=== PATIENT | female | born 1975 | race Caucasian/White ===

== ENCOUNTER 2016-06-21 10:14 | Emergency (ER) | payer MEDICAID ==
[~2016-06-21] VITALS: Ht 165.1 cm; Wt 119.9 kg
[~2016-06-21 10:14] MED LIST: CYCL10TA50 PO; IBUP800T PO; MELO7.5T5 PO; OXYC-302; OXYC1TAB7 PO
[2016-06-21] MEDS ORDERED: FAMOTIDINE 20 MG/2 ML IVP ONE (12:30)
[2016-06-21] MEDS ORDERED: SODIUM CHLORIDE 0.9% 1,000ML IVBOLUS ONE (12:30)
[2016-06-21] MEDS ORDERED: MORPHINE SULFATE 4 MG/ML, 1ML IVPush PRN (12:30)
[2016-06-21] MEDS ORDERED: SODIUM CHLORIDE FLUSH 10ML SYR IVF ONE (12:30)
[2016-06-21] MEDS ORDERED: ONDANSETRON 2MG/ML, 2ML IVPush ONE (12:30)
[2016-06-21] MEDS ORDERED: ONDANSETRON 2MG/ML, 2ML ONE (12:36)
[2016-06-21] MEDS ORDERED: MORPHINE SULFATE 4 MG/ML, 1ML ONE (12:36)
[2016-06-21] MEDS ORDERED: FAMOTIDINE 20 MG/2 ML ONE (12:36)
[2016-06-21 13:07] LABS: HEMOGLOBIN 15.6 g/dL (11.7-16.4)
[2016-06-21 13:17] LABS: ASPARTATE AMINO TRANSFERASE 14 U/L (15-37); BLOOD UREA NITROGEN 11 mg/dL (7-18)
[2016-06-21] MEDS ORDERED: OMNIPAQUE 350 MG/ML, 100ML BOTTLE ONE (15:08)
[2016-06-21 15:55] VITALS: BP 120/74
== END 2016-06-21 16:06 | disposition home or self-care (01) ==
LOC: ED 15:26
DX: R10.31 Right lower quadrant pain (principal); R11.2 Nausea with vomiting, unspecified; R19.7 Diarrhea, unspecified; Z90.49 Acquired absence of other specified parts of digestive tract; Z90.710 Acquired absence of both cervix and uterus; Z98.51 Tubal ligation status
CPT/HCPCS: 36415; 74177; 80053; 81001; 83690; 85025; 87086; 96361; 96374; 96375; 99285; J2405; J7030; Q9967; S0028

== ENCOUNTER 2016-09-01 14:06 | Emergency (ER) | payer MEDICAID ==
[~2016-09-01] VITALS: Ht 165.1 cm; Wt 120.0 kg
[2016-09-01] MEDS ORDERED: DIAZEPAM 5 MG/ML, 2ML IVPush ONE (15:00)
[2016-09-01] MEDS ORDERED: MORPHINE SULFATE 4 MG/ML, 1ML IVPush PRN (15:00)
[2016-09-01] MEDS ORDERED: SODIUM CHLORIDE 0.9% 1,000ML IV ONE (15:00)
[2016-09-01] MEDS ORDERED: KETOROLAC 30 MG/1 ML IVPush ONE (15:00)
[2016-09-01] MEDS ORDERED: SODIUM CHLORIDE FLUSH 10ML SYR IVF ONE (15:00)
[2016-09-01] MEDS ORDERED: SODIUM CHLORIDE 0.9% 1,000 ML IV ONE (15:48)
[2016-09-01] MEDS ORDERED: ONDANSETRON 2MG/ML, 2ML IVPush ONE (16:00)
[2016-09-01] MEDS ORDERED: SODIUM CHLORIDE 0.9% 1,000ML IVBOLUS ONE (16:00)
[2016-09-01 16:27] LABS: ASPARTATE AMINO TRANSFERASE 10 U/L (15-37); BLOOD UREA NITROGEN 9 mg/dL (7-18)
[2016-09-01 16:28] LABS: PATH.CAST-FLAG NOT PRESENT; SPERM-FLAG NOT PRESENT; SRC-FLAG NOT PRESENT; XTAL-FLAG NOT PRESENT; YLC-FLAG NOT PRESENT
[2016-09-01] MEDS ORDERED: ONDANSETRON 2MG/ML, 2ML ONE (16:33)
[2016-09-01] MEDS ORDERED: MORPHINE SULFATE 4 MG/ML, 1ML ONE (16:33)
[2016-09-01 17:02] VITALS: BP 132/81
== END 2016-09-01 17:52 | disposition home or self-care (01) ==
LOC: ED 17:30
DX: K52.9 Noninfective gastroenteritis and colitis, unspecified (principal); I10 Essential (primary) hypertension; Z90.49 Acquired absence of other specified parts of digestive tract
CPT/HCPCS: 36415; 72110; 74020; 80053; 81001; 85025; 96361; 96374; 96375; 99285; J2405; J7030

== ENCOUNTER 2016-11-15 11:32 | Emergency (ER) | payer MEDICAID ==
[~2016-11-15] VITALS: Ht 165.1 cm; Wt 121.3 kg
[~2016-11-15 11:32] MED LIST changes: +IBUP-1223 PO; -IBUP800T PO
[2016-11-15] MEDS ORDERED: FAMOTIDINE 20 MG/2 ML IVP ONE (12:30)
[2016-11-15] MEDS ORDERED: MORPHINE SULFATE 4 MG/ML, 1ML IVPush PRN (12:30)
[2016-11-15] MEDS ORDERED: ONDANSETRON 2MG/ML, 2ML IVPush ONE (12:30)
[2016-11-15] MEDS ORDERED: MAALOX/HYOSCYAMINE/LIDOCAINE 45 ML BTL PO ONE (12:30)
[2016-11-15] MEDS ORDERED: SODIUM CHLORIDE 0.9% 1,000ML IVBOLUS ONE (12:30)
[2016-11-15] MEDS ORDERED: SODIUM CHLORIDE FLUSH 10ML SYR IVF ONE (12:30)
[2016-11-15] MEDS ORDERED: ONDANSETRON 2MG/ML, 2ML ONE (12:36)
[2016-11-15] MEDS ORDERED: MORPHINE SULFATE 4 MG/ML, 1ML ONE (12:36)
[2016-11-15] MEDS ORDERED: FAMOTIDINE 20 MG/2 ML ONE (12:36)
[2016-11-15] MEDS ORDERED: MAALOX/HYOSCYAMINE/LIDOCAINE 45 ML BTL ONE (12:37)
[2016-11-15 13:36] LABS: ASPARTATE AMINO TRANSFERASE 12 U/L (15-37); BLOOD UREA NITROGEN 6 mg/dL (7-18)
[2016-11-15 13:38] LABS: HEMATOCRIT 39.2 % (34.6-47.8); HEMOGLOBIN 13.2 g/dL (11.7-16.4); WHITE BLOOD COUNT 7.4 x10^3/uL (3.4-10)
[2016-11-15 16:01] VITALS: BP 111/71
== END 2016-11-15 16:04 | disposition home or self-care (01) ==
LOC: ED 12:35
DX: K52.9 Noninfective gastroenteritis and colitis, unspecified (principal); J20.9 Acute bronchitis, unspecified; I10 Essential (primary) hypertension; Z90.49 Acquired absence of other specified parts of digestive tract; Z90.710 Acquired absence of both cervix and uterus
CPT/HCPCS: 36415; 74022; 76830; 80053; 81003; 83690; 85025; 96361; 96374; 96375; 99285; J2405; J7030; S0028

== ENCOUNTER 2016-12-22 22:07 | Emergency (ER) | payer MEDICAID ==
[~2016-12-22] VITALS: Ht 165.1 cm; Wt 120.0 kg
[2016-12-22 22:08] VITALS: BP 121/86
== END 2016-12-22 23:21 | disposition home or self-care (01) ==
LOC: ED 23:00
DX: S76.011A Strain of muscle, fascia and tendon of right hip, initial encounter (principal); S80.11XA Contusion of right lower leg, initial encounter; G89.11 Acute pain due to trauma; W01.0XXA Fall on same level from slipping, tripping and stumbling without subsequent striking against object, initial encounter; Y93.01 Activity, walking, marching and hiking; Y92.480 Sidewalk as the place of occurrence of the external cause; Y99.8 Other external cause status
CPT/HCPCS: 99284

== ENCOUNTER 2017-02-21 14:35 | Emergency (ER) | payer MEDICAID ==
[~2017-02-21] VITALS: Ht 165.1 cm; Wt 120.9 kg
[2017-02-21 14:44] VITALS: BP 146/83
== END 2017-02-21 15:35 | disposition home or self-care (01) ==
LOC: ED 15:19
DX: B85.0 Pediculosis due to Pediculus humanus capitis (principal); Z59.0 Homelessness; I10 Essential (primary) hypertension; Z90.49 Acquired absence of other specified parts of digestive tract
CPT/HCPCS: 99283

== ENCOUNTER 2017-03-20 09:05 | Emergency (ER) | payer MEDICAID ==
[~2017-03-20] VITALS: Ht 165.1 cm; Wt 117.8 kg
[2017-03-20] MEDS ORDERED: OXYC-307 PO (10:26)
[2017-03-20] MEDS ORDERED: BICILLIN-LA 1,200,000 UNITS/2 ML IM ONE (11:30)
[2017-03-20 11:50] VITALS: BP 119/60
== END 2017-03-20 12:15 | disposition home or self-care (01) ==
LOC: ED 11:24
DX: J02.0 Streptococcal pharyngitis (principal); I10 Essential (primary) hypertension; E66.9 Obesity, unspecified; Z90.49 Acquired absence of other specified parts of digestive tract
CPT/HCPCS: 87880; 96372; 99283; J0561

== ENCOUNTER 2018-04-14 11:01 | Emergency (ER) | payer SELFPAY ==
[~2018-04-14] VITALS: Ht 165.1 cm; Wt 111.6 kg
[~2018-04-14 11:01] MED LIST changes: +OXYC-307 PO
--- NOTE | 2018-04-14 12:25 | NUR ---
NO ANSWER IN LOBBY
--- NOTE | 2018-04-14 12:32 | NUR ---
AMBULATORY TO ROOM AT THIS TIME
[2018-04-14 12:37] LABS: MEAN CORPUSCULAR HEMOGLOBIN 31.7 pg (27.0-34.8); MEAN CORPUSCULAR HGB CONC 33.9 g/dL (32.4-35.8); MEAN CORPUSCULAR VOLUME 93.5 fL (80-100); PLATELET COUNT 262 x10^3/uL (130-400); RED BLOOD COUNT 4.04 x10^6/uL (3.82-5.3); RED CELL DISTRIBUTION WIDTH 14.1 % (9.6-15.2)
[2018-04-14] MEDS ORDERED: CYCL-259 PO (12:40)
[2018-04-14 12:51] LABS: ALBUMIN 3.4 g/dL (3.4-5.0); ANION GAP 6 mmol/L (5-15); CALCIUM 8.3 mg/dL (8.5-10.1); CHLORIDE 108 mmol/L (98-107); CREATININE 0.62 mg/dL (0.55-1.02)
[2018-04-14] MEDS ORDERED: SODIUM CHLORIDE FLUSH 10ML SYR IVF ONE (13:00)
[2018-04-14] MEDS ORDERED: DIPHENHYDRAMINE 50 MG/ML, 1ML IVPush ONE (13:00)
[2018-04-14] MEDS ORDERED: PROCHLORPERAZINE 5 MG/ML, 2ML IVPush ONE (13:00)
[2018-04-14 13:25] LABS: MD YES
[2018-04-14 13:29] LABS: <RBC MORPHOLOGY> NORMAL; BASOS#(MANUAL) 0.13 x10^3/uL (0-0.1); BASOS% (MANUAL) 1 % (0-1); EOS#(MANUAL) 0.13 x10^3/uL (0.0-0.4); EOS% (MANUAL) 1 % (1-7); LYMPH#(MANUAL) 5.29 x10^3/uL (1-3.4); LYMPHS% (MANUAL) 41 % (22-44); MONOS#(MANUAL) 0.26 x10^3/uL (0.3-2.7); MONOS% (MANUAL) 2 % (2-9); REACTIVE LYMPHS # (MANUAL) 0.13 x10^3/uL (0-0); REACTIVE LYMPHS % (MANUAL) 1 % (0-0); SEG#(MANUAL) 6.97 x10^3/uL (1.8-6.8); SEGS% (MANUAL) 54 % (42-75)
[2018-04-14 13:30] LABS: <PLATELET ESTIMATE> ADEQUATE; <PLT MORPHOLOGY> NORMAL PLT MORPH
--- NOTE | 2018-04-14 14:15 | NUR ---
PT UNABLE TO VOID. BLADDER SCAN COMPLETED WITH 440 ML NOTED. STRAIGHT CATH COMPLETED WITH 550 ML CLEAR YELLOW URINE NOTED.
[2018-04-14] MEDS ORDERED: PROCHLORPERAZINE 5 MG/ML, 2ML ONE (14:23)
[2018-04-14] MEDS ORDERED: DIPHENHYDRAMINE 50 MG/ML, 1ML ONE (14:23)
[2018-04-14 14:48] LABS: MICROSCOPIC NOT IND
[2018-04-14 14:55] LABS: CULTURE INDICATED? NO
--- NOTE | 2018-04-14 14:56 | NUR ---
DR LEON, ANESTHESIA AT BEDSIDE. US GUIDED PIV ATTEMPT X [address] BY SANDRA AMATO WITHOUT SUCCESS. [address] LEON TO ATTEMPT
--- NOTE | 2018-04-14 15:04 | NUR ---
DR LEON ABLE TO OBTAIN IV ACCESS VIA ULTRASOUND AND NOTED IN CHART. CONSENT OBTAINED FOR EPIDURAL BLOOD PATCH.
--- NOTE | 2018-04-14 16:07 | NUR ---
PER PT, HER MARES PAIN IS NOW 2/10. PT RPTS THAT DR LEON CANCELED THE BLOOD PATCH. PT AMBULATED BATHROOM UPRIGHT STEADY GAIT. PT RPTS THAT SHE VOIDED W/O DIFFICULTY AND DOES NOT FEEL THAT SHE IS RETAINING URINE. BLADDER IS SOFT TO PALPATION
[2018-04-14 16:08] VITALS: BP 127/75
--- NOTE | 2018-04-14 16:17 | NUR ---
Patient/Caregiver given discharge instructions and they have confirmed that they understand the instructions. Patient ambulatory with steady gait. TAXI VOUCHER PROVIDED
== END 2018-04-14 17:22 | disposition home or self-care (01) ==
LOC: ED 15:15
DX: G43.011 Migraine without aura, intractable, with status migrainosus (principal); Z90.49 Acquired absence of other specified parts of digestive tract; Z90.710 Acquired absence of both cervix and uterus; M54.9 Dorsalgia, unspecified; G89.29 Other chronic pain
CPT/HCPCS: 36415; 80048; 81003; 82040; 85025; 96374; 96375; 99283; J0780; J1200

== ENCOUNTER 2018-04-16 21:57 | Emergency (ER) | payer SELFPAY ==
[~2018-04-16] VITALS: Ht 165.1 cm; Wt 108.1 kg
[~2018-04-16 21:57] MED LIST changes: +CYCL-259 PO
[2018-04-16] MEDS ORDERED: KETOROLAC 30 MG/1 ML ONE (22:23)
[2018-04-16] MEDS ORDERED: KETOROLAC 30 MG/1 ML IM ONE (22:30)
--- NOTE | 2018-04-16 22:58 | NUR ---
PT REPORTS RIGHT SIDED ABD PAIN THAT GOES TO RIGHT FLANK. NO ACUTE DISTRESS NOTED. CALL LIGHT IN PLACE. WILL CONTINUE TO MONITOR.
--- NOTE | 2018-04-16 23:04 | NUR ---
REPORT RECEIVED FROM SANDRA CUADRA. ASSUMED CARE OF PT. AWAITING LABS AT THIS TIME. WILL CONTINUE TO MONITOR.
[2018-04-16 23:07] LABS: CULTURE INDICATED? YES; MICROSCOPIC INDICATED
--- NOTE | 2018-04-16 23:08 | NUR ---
REPORT GIVEN TO SANDRA MERAZ
[2018-04-16] MEDS ORDERED: CEFDINIR 300 MG CAPSULE ONE (23:29)
[2018-04-16] MEDS ORDERED: CEFDINIR 300 MG CAPSULE PO ONE (23:30)
[2018-04-16 23:32] VITALS: BP 118/68
--- NOTE | 2018-04-16 23:32 | NUR ---
PT MEDICATED PER EMAR. 5 RIGHTS ADDRESSED.
--- NOTE | 2018-04-16 23:39 | NUR ---
Patient/Caregiver given discharge instructions and they have confirmed that they understand the instructions. Patient ambulatory with steady gait.
== END 2018-04-16 23:41 | disposition home or self-care (01) ==
LOC: ED 22:52
DX: N30.00 Acute cystitis without hematuria (principal); I10 Essential (primary) hypertension; Z90.49 Acquired absence of other specified parts of digestive tract; Z98.890 Other specified postprocedural states; Z90.710 Acquired absence of both cervix and uterus; Z98.51 Tubal ligation status
CPT/HCPCS: 81001; 87077; 87086; 87186; 96372; 99283; J1885

== ENCOUNTER 2020-08-26 14:47 | Emergency (ER) | payer MEDICAID ==
[~2020-08-26] VITALS: Ht 165.1 cm; Wt 157.0 kg
[~2020-08-26 14:47] MED LIST changes: -CYCL-259 PO; +CYCL10TA2 PO; -OXYC-302; -OXYC-307 PO; +OXYC-380 PO; +OXYC1TAB14
[2020-08-26 15:04] VITALS: BP 147/85
--- NOTE | 2020-08-26 16:29 | NUR ---
PT BIB SELF VIA POV. PER PT "IM HAVING SHARP PAINS IN MY VAGINA. STARTED YESTERDAY. COMES AND GOES". PT REPORTS NO BLEEDING OR DISCHARGE, PT HAS HAD PARTIAL HYSTERECTOMY. PT RESTING IN [facility], AWAITING ULTRASOUND, MONITORING IN PLACE, [place] AT THIS TIME, WCZEENAT.
[2020-08-26] MEDS ORDERED: FLUCONAZOLE 100 MG TABLET ONE (17:21)
[2020-08-26] MEDS ORDERED: FLUCONAZOLE 100 MG TABLET PO ONE (17:30)
== END 2020-08-26 17:35 | disposition home or self-care (01) ==
LOC: ED 15:15
DX: B37.3 Candidiasis of vulva and vagina (principal); R10.2 Pelvic and perineal pain
CPT/HCPCS: 76830; 99284

== ENCOUNTER 2020-09-13 18:52 | Emergency (ER) | payer MEDICAID ==
[~2020-09-13] VITALS: Ht 154.9 cm; Wt 152.2 kg
[2020-09-13] MEDS ORDERED: PHENAZOPYRIDINE 200 MG TABLET PO ONE (19:00)
[2020-09-13 19:42] LABS: MICROSCOPIC INDICATED
[2020-09-13 19:45] LABS: BASOPHILS % (AUTO) 1 % (0-1); EOSINOPHILS % (AUTO) 1 % (1-7); LYMPHOCYTES % (AUTO) 25 % (22-44); MEAN CORPUSCULAR HEMOGLOBIN 30.1 pg (27.0-34.8); MEAN CORPUSCULAR HGB CONC 33.5 g/dL (32.4-35.8); MONOCYTES % (AUTO) 5 % (2-9); NEUTROPHILS % (AUTO) 68 % (42-75); PLATELET COUNT 296 x10^3/uL (130-400); RED CELL DISTRIBUTION WIDTH 14.9 % (9.6-15.2)
[2020-09-13 19:54] LABS: ALANINE AMINOTRANSFERASE 22 U/L (12-78); ALBUMIN 3.8 g/dL (3.4-5.0); ANION GAP 9 mmol/L (5-15); CALCIUM 9.1 mg/dL (8.5-10.1); CHLORIDE 109 mmol/L (98-107); CREATININE 0.94 mg/dL (0.55-1.02)
[2020-09-13 19:59] LABS: ALKALINE PHOSPHATASE 159 U/L (45-117); BILIRUBIN,TOTAL 0.2 mg/dL (0.2-1.0); TOTAL PROTEIN 7.9 g/dL (6.4-8.2)
--- NOTE | 2020-09-13 20:37 | NUR ---
foot cutter: Pt to room from lobby at this time.
[2020-09-13] MEDS ORDERED: PHENAZOPYRIDINE 200 MG TABLET ONE (20:46)
[2020-09-13 22:00] VITALS: BP 131/74
--- NOTE | 2020-09-13 23:00 | NUR ---
Patient given discharge instructions and they have confirmed that they understand the instructions. Patient ambulatory with steady gait.pt states she has a ride home
== END 2020-09-13 23:24 | disposition home or self-care (01) ==
LOC: ED 20:50
DX: M54.5 Low back pain (principal); R30.0 Dysuria; I10 Essential (primary) hypertension; Z87.11 Personal history of peptic ulcer disease; Z90.49 Acquired absence of other specified parts of digestive tract; Z90.710 Acquired absence of both cervix and uterus; F17.200 Nicotine dependence, unspecified, uncomplicated
CPT/HCPCS: 36415; 80053; 81001; 84702; 84703; 85025; 99283